=== PATIENT | female | born 1925 | race African-American/Black ===

== ENCOUNTER 2016-12-16 09:27 | Emergency (ER) | payer MEDICARE, BC ==
[2016-12-16] MEDS ORDERED: ACETAMINOPHEN IV (For NPO) 1,000 MG in SALINE 1 100ML.BAG IVPB STA (10:07)
--- NOTE | 2016-12-16 10:10 | ED ---
Neck Injury/Pain HPI - General Chief Complaint: Neck Pain/Injury Stated Complaint: Neck pain/chest discomfort/cough Time Seen by Provider: 12/16/16 09:45 Source: patient, RN notes reviewed Mode of arrival: wheelchair Limitations: no limitations - History of Present Illness Initial Comments: This is a 89-year-old female who presents with complaints of progressively worsening left-sided neck pain radiating into her left shoulder the past 2 days. She denies any trauma a recent falls fevers chills sweats shortness of breath or cough. She states which he turns to the left he gets worse. She denies any focal motor deficits. No other complaints at this time. She denies any chest pain. MD Complaint: neck pain - Related Data Home Medications Medication Instructions Recorded Confirmed Acarbose [Precose] 100 mg PO TID 11/16/14 12/16/16 Levothyroxine Sodium [Synthroid] 150 mcg PO DAILY 11/16/14 12/16/16 Aspirin [Adult Low Dose Aspirin EC] 81 mg PO DAILY 09/15/16 12/16/16 Allopurinol [Zyloprim] 100 mg PO DAILY 12/16/16 12/16/16 Benazepril [Lotensin] 10 mg PO DAILY 12/16/16 12/16/16 HYDROcodone/APAP 5-325MG [[place] 5] 1 tab PO Q4H PRN 12/16/16 12/16/16 Oxybutynin ER [Ditropan Xl] 15 mg PO DAILY 12/16/16 12/16/16 Previous Rx's Medication Instructions Recorded predniSONE 20 mg PO BID #10 tab 12/16/16 Allergies Allergy/AdvReac Type Severity Reaction Status Date / Time nickel Allergy Rash/Hives Verified 12/16/16 10:03 Review of Systems ROS Statement: Those systems with pertinent positive or pertinent negative responses have been documented in the HPI. ROS Other: All systems not noted in ROS Statement are negative. Past Medical History Past Medical History: Diabetes Mellitus, Hyperlipidemia, Hypertension, Myocardial Infarction ([place]), Thyroid Disorder Last Myocardial Infarction Date:: 11/30/1999 History of Any Multi-Drug Resistant Organisms: None Reported Past Surgical History: Appendectomy, Breast Surgery, Cholecystectomy, Hysterectomy, Joint Replacement, Orthopedic Surgery, Pacemaker, Tonsillectomy Additional Past Surgical History / Comment(s): PACER REMOVED, BILATERAL BREAST REDUCTIONS, LEFT HIP ARTHROPLASTY, Past Anesthesia/Blood Transfusion Reactions: No Reported Reaction Type of Cardiac Device: Unknown Device Placement Date:: 11/30/1999 Past Psychological History: No Psychological Hx Reported Smoking Status: Never smoker Past Alcohol Use History: None Reported Additional Past Alcohol Use History / Comment(s): NO ETOH USE. Past Drug Use History: None Reported - Past Family History Father Family Medical History: Vascular Disorder Mother Family Medical History: Diabetes Mellitus Sister(s) Additional Family Medical History / Comment(s): 3-4 SISTERS CANCER-BREAST General Exam - General Exam Comments Initial Comments: This is a well-developed well-nourished awake alert oriented 3 female Limitations: no limitations General appearance: alert, anxious Head exam: Present: atraumatic, normocephalic, normal inspection Eye exam: Present: normal appearance, PERRL, EOMI. Absent: scleral icterus, conjunctival injection, periorbital swelling ENT exam: Present: normal exam, mucous membranes moist Neck exam: Present: normal inspection, tenderness (Tenderness palpation over left lateral neck musculature no spinous process tenderness. Range of motion is restricted secondary to pain. No stridor JVD or bruits). Absent: meningismus, lymphadenopathy Respiratory exam: Present: normal lung sounds bilaterally. Absent: respiratory distress, wheezes, rales, rhonchi, stridor Cardiovascular Exam: Present: normal rhythm, bradycardia, normal heart sounds. Absent: systolic murmur, diastolic murmur, rubs, gallop, clicks GI/Abdominal exam: Present: soft, normal bowel sounds. Absent: distended, tenderness, guarding, rebound, rigid Extremities exam: Present: normal inspection, full ROM, normal capillary refill. Absent: tenderness, pedal edema, joint swelling, calf tenderness Back exam: Present: normal inspection Neurological exam: Present: alert, oriented X3, CN II-XII intact Psychiatric exam: Present: normal affect, normal mood Skin exam: Present: warm, dry, intact, normal color. Absent: rash Course Vital Signs 12/16/16 12/16/16 12/16/16 09:35 09:50 09:54 Temperature 97.3 F L Pulse Rate 54 L 48 L Respiratory 18 18 18 Rate Blood Pressure 204/72 160/70 O2 Sat by Pulse 97 99 Oximetry 12/16/16 11:46 Temperature 98 F Pulse Rate 55 L Respiratory 16 Rate Blood Pressure 128/75 O2 Sat by Pulse 98 Oximetry Medical Decision Making - Medical Decision Making Patient is feeling improved she'll be discharged the presentation is consistent with cervical radiculopathy and myofascial pain. - Lab Data Result diagrams: 12/16/16 10:15 12/16/16 10:15 Lab Results 12/16/16 12/16/16 12/16/16 Range/Units 10:15 10:15 10:15 WBC 5.2 (3.8-10.6) k/uL RBC 3.33 L (3.80-5.40) m/uL Hgb 10.1 L (11.4-16.0) gm/dL Hct 32.1 L (34.0-46.0) % MCV 96.4 (80.0-100.0) fL MCH 30.4 (25.0-35.0) pg MCHC 31.5 (31.0-37.0) g/dL RDW 13.9 (11.5-15.5) % Plt Count 303 (150-450) k/uL Neutrophils % 48 % Lymphocytes % 31 % Monocytes % 10 % Eosinophils % 6 % Basophils % 1 % Neutrophils # 2.5 (1.3-7.7) k/uL Lymphocytes # 1.6 (1.0-4.8) k/uL Monocytes # 0.5 (0-1.0) k/uL Eosinophils # 0.3 (0-0.7) k/uL Basophils # 0.0 (0-0.2) k/uL Sodium 143 (137-145) mmol/L Potassium 4.9 (3.5-5.1) mmol/L Chloride 112 H (98-107) mmol/L Carbon Dioxide 22 (22-30) mmol/L Anion Gap 9 mmol/L BUN 26 H (7-17) mg/dL Creatinine 1.04 (0.52-1.04) mg/dL Est GFR (MDRD) Af Amer >60 (>60 ml/min/1.73 sqM) Est GFR (MDRD) Non-Af 50 (>60 ml/min/1.73 sqM) Glucose 86 (74-99) mg/dL Calcium 9.0 (8.4-10.2) mg/dL Magnesium 1.6 (1.6-2.3) mg/dL Total Bilirubin 0.5 (0.2-1.3) mg/dL AST 18 (14-36) U/L ALT 30 (9-52) U/L Alkaline Phosphatase 70 (38-126) U/L Total Creatine Kinase 66 (30-135) U/L CK-MB (CK-2) 0.9 (0.0-2.4) ng/mL CK-MB (CK-2) Rel Index 1.4 Troponin I <0.012 (0.000-0.034) ng/mL Total Protein 6.1 L (6.3-8.2) g/dL Albumin 3.1 L (3.5-5.0) g/dL - EKG Data -: EKG Interpreted by Me EKG shows normal: sinus rhythm (Sinus bradycardia rate of 46. Interval 114 QRS duration 80 QT/QTC of 402/351) - Radiology Data Radiology results: report reviewed (I did review the imaging and reports no acute findings or is evidence of degenerative changes seen in the cervical spine.), image reviewed Disposition Clinical Impression: Strain of neck muscle, Cervical radiculopathy Disposition: HOME SELF-CARE Condition: Good Instructions: Cervical Strain (ED), Cervical Radiculopathy (ED), Acute Neck Pain (ED) Prescriptions: predniSONE 20 mg PO BID #10 tab
[2016-12-16 10:24] LABS: Basophils % (A) 1 %; CH 30.4; CHCM 31.7; Eosinophils # (A) 0.3 k/uL (0-0.7); Eosinophils % (A) 6 %; HCT 32.1 % (34.0-46.0); HDW 2.48; HGB 10.1 gm/dL (11.4-16.0); Luc # (Auto) 0.21; Luc % (Auto) 4; Lymphocytes # (A) 1.6 k/uL (1.0-4.8); Lymphocytes % (A) 31 %; MCH 30.4 pg (25.0-35.0); MCHC 31.5 g/dL (31.0-37.0); MCV 96.4 fL (80.0-100.0); Mean Platelet Volume 7.1; Monocytes # (A) 0.5 k/uL (0-1.0); Monocytes % (A) 10 %; Neutrophils # (A) 2.5 k/uL (1.3-7.7); Neutrophils % (A) 48 %; RBC 3.33 m/uL (3.80-5.40); RDW 13.9 % (11.5-15.5); WBC 5.2 k/uL (3.8-10.6); WBC (Perox) 5.18
[2016-12-16 10:33] LABS: ALT 30 U/L (9-52); AST 18 U/L (14-36); Alkaline Phosphatase 70 U/L (38-126); Anion Gap 9 mmol/L; Blood Urea Nitrogen 26 mg/dL (7-17); Carbon Dioxide 22 mmol/L (22-30); Chloride 112 mmol/L (98-107); Glucose 86 mg/dL (74-99); Magnesium 1.6 mg/dL (1.6-2.3); Non-African American GFR(MDRD) 50 (>60 ml/min/1.73 sqM); Potassium 4.9 mmol/L (3.5-5.1); Sodium 143 mmol/L (137-145); Total Bilirubin 0.5 mg/dL (0.2-1.3); Total Protein 6.1 g/dL (6.3-8.2)
[2016-12-16 10:43] LABS: Creatine Kinase 66 U/L (30-135)
[2016-12-16 10:56] LABS: Creatine Kinase MB 0.9 ng/mL (0.0-2.4); Troponin I <0.012 ng/mL (0.000-0.034)
--- NOTE | 2016-12-16 11:03 | XR ---
EXAMINATION TYPE: XR chest 2V DATE OF EXAM: 12/16/2016 10:49 AM COMPARISON: Chest x-ray 04 December 2014 HISTORY: Chest pain TECHNIQUE: Frontal and lateral views of the chest are obtained. FINDINGS: There is no focal air space opacity, pleural effusion, or pneumothorax seen. The cardiac silhouette size is within normal limits. Patient is rotated. There are overlying cardiac leads. Stran d-like densities at the left lung base may reflect atelectasis or scar. The aorta is dense. Degenerat eli changes are present in the visualized spine. Surgical clip in the upper abdomen. The osseous stru ctures are intact. IMPRESSION: Minimal basilar atelectasis suspected. Additional findings above.
--- NOTE | 2016-12-16 11:22 | XR ---
Cervical spine HISTORY: Neck pain No comparisons 5 views of the cervical spine Cervical vertebral bodies show preserved height. Anterolisthesis grade 1 C2-3, C4-5, C6-7. Retrolisth esis grade 1 C5-6. There is loss of disc height greatest at C2-3, C3-4, C5-6 and C6-7. Oblique images show mild foraminal encroachment at C4-5, C5-6, C6-7 bilaterally. There is multilevel facet arthropa thy. Prevertebral soft tissues show some indeterminate calcification. Airway is patent. Multilevel sp ondylosis is present. Bone mineralization slightly reduced. The patient is edentulous. IMPRESSION: Suspect degenerative disc disease, cervical MRI may be of benefit.
[2016-12-16 11:46] VITALS: BP 128/75; PULSE 55; RESP 16; TEMP 98
[2016-12-16] MEDS ORDERED: methylPREDNISolone SOD SUCCI 125 MG/2 ML VIAL IV STA (11:47)
== END 2016-12-16 12:04 | disposition home or self-care (01) ==
LOC: EC 09:27
DX: S16.1XXA Strain of muscle, fascia and tendon at neck level, initial encounter (principal); M54.12 Radiculopathy, cervical region; X58.XXXA Exposure to other specified factors, initial encounter; Z79.899 Other long term (current) drug therapy; Z79.82 Long term (current) use of aspirin; E07.9 Disorder of thyroid, unspecified; I10 Essential (primary) hypertension; Z91.048 Other nonmedicinal substance allergy status; I25.2 Old myocardial infarction; E11.9 Type 2 diabetes mellitus without complications; Z79.84 Long term (current) use of oral hypoglycemic drugs
CPT/HCPCS: 36415; 93005; 80053; 82550; 82553; 83735; 84484; 85025; 71020; 72050; 96374; 96375; 99284; J2930; J0131

== ENCOUNTER 2016-12-29 02:22 | Observation (INO) | payer MEDICARE, BC ==
--- NOTE | 2016-12-29 02:51 | ED ---
Chest Pain HPI - General Chief Complaint: Chest Pain Stated Complaint: chest pains Time Seen by Provider: 12/29/16 02:27 Source: patient, RN notes reviewed, old records reviewed Mode of arrival: wheelchair Limitations: no limitations - History of Present Illness Initial Comments: This is a 89-year-old female who presents with complaints of the onset about one hour ago of left-sided chest pain was sharp in nature moderate in severity she did take 2 nitroglycerin which is seen helped currently she states she is pain-free no fevers chills nausea vomiting sweats cough or other symptoms. No trauma is reported. Of note she was here in the of this month with complaints of left-sided neck pain which was thought to be radicular in nature. Per her family she did have chest pain several days ago and chose not to get evaluated. She has no other complaints this time she currently again states she is pain-free MD Complaint: chest pain - Related Data Home Medications Medication Instructions Recorded Confirmed Acarbose [Precose] 100 mg PO TID 11/16/14 12/16/16 Levothyroxine Sodium [Synthroid] 150 mcg PO DAILY 11/16/14 12/16/16 Aspirin [Adult Low Dose Aspirin EC] 81 mg PO DAILY 09/15/16 12/16/16 Allopurinol [Zyloprim] 100 mg PO DAILY 12/16/16 12/16/16 Benazepril [Lotensin] 10 mg PO DAILY 12/16/16 12/16/16 HYDROcodone/APAP 5-325MG [[place] 5] 1 tab PO Q4H PRN 12/16/16 12/16/16 Oxybutynin ER [Ditropan Xl] 15 mg PO DAILY 12/16/16 12/16/16 Previous Rx's Medication Instructions Recorded predniSONE 20 mg PO BID #10 tab 12/16/16 Allergies Allergy/AdvReac Type Severity Reaction Status Date / Time nickel Allergy Rash/Hives Verified 12/16/16 10:03 Review of Systems ROS Statement: Those systems with pertinent positive or pertinent negative responses have been documented in the HPI. ROS Other: All systems not noted in ROS Statement are negative. EKG Findings - EKG Results: EKG: interpreted by MARGUERITE, sinus rhythm (Sinus rhythm with a rate of 53 CA interval 114 QRS duration 74 daily since QTC of 394/[address]- T wave changes this is compared to an EKG dated 12/16/16 which shows no change.) Past Medical History Past Medical History: Diabetes Mellitus, Hyperlipidemia, Hypertension, Myocardial Infarction ([place]), Thyroid Disorder Last Myocardial Infarction Date:: 11/30/1999 History of Any Multi-Drug Resistant Organisms: None Reported Past Surgical History: Appendectomy, Breast Surgery, Cholecystectomy, Hysterectomy, Joint Replacement, Orthopedic Surgery, Pacemaker, Tonsillectomy Additional Past Surgical History / Comment(s): PACER REMOVED, BILATERAL BREAST REDUCTIONS, LEFT HIP ARTHROPLASTY, Past Anesthesia/Blood Transfusion Reactions: No Reported Reaction Type of Cardiac Device: Unknown Device Placement Date:: 11/30/1999 Past Psychological History: No Psychological Hx Reported Smoking Status: Never smoker Past Alcohol Use History: None Reported Additional Past Alcohol Use History / Comment(s): NO ETOH USE. Past Drug Use History: None Reported - Past Family History Father Family Medical History: Vascular Disorder Mother Family Medical History: Diabetes Mellitus Sister(s) Additional Family Medical History / Comment(s): 3-4 SISTERS CANCER-BREAST General Exam - General Exam Comments Initial Comments: This is a well-developed well-nourished awake alert oriented 3 female Limitations: no limitations General appearance: alert, in no apparent distress Head exam: Present: atraumatic, normocephalic, normal inspection Eye exam: Present: normal appearance, PERRL, EOMI. Absent: scleral icterus, conjunctival injection, periorbital swelling ENT exam: Present: normal exam, mucous membranes moist Neck exam: Present: normal inspection. Absent: tenderness, meningismus, lymphadenopathy Respiratory exam: Present: normal lung sounds bilaterally, chest wall tenderness (Tenderness palpation over left sternal costal margin this does seem to reproduce the patient's pain.). Absent: respiratory distress, wheezes, rales , rhonchi, stridor Cardiovascular Exam: Present: regular rate, normal rhythm, normal heart sounds. Absent: systolic murmur, diastolic murmur, rubs, gallop, clicks GI/Abdominal exam: Present: soft, normal bowel sounds. Absent: distended, tenderness, guarding, rebound, rigid Extremities exam: Present: normal inspection, full ROM, normal capillary refill. Absent: tenderness, pedal edema, joint swelling, calf tenderness Back exam: Present: normal inspection Neurological exam: Present: alert, oriented X3, CN II-XII intact Psychiatric exam: Present: normal affect, normal mood Skin exam: Present: warm, dry, intact, normal color. Absent: rash Course Vital Signs 12/29/16 12/29/16 12/29/16 02:36 02:39 04:27 Temperature 97.8 F Pulse Rate 56 L 52 L 51 L Respiratory 18 16 18 Rate Blood Pressure 216/90 172/72 138/63 O2 Sat by Pulse 99 99 Oximetry Chest Pain MDM - MDM Review the imaging shows no acute findings. Patient has had intermittent chest pain she'll be admitted for evaluation inpatient with Dr. French on consult Disposition Clinical Impression: Atypical chest pain, Unstable angina pectoris Disposition: ADMITTED IP TO THIS HOSP Condition: Stable
[2016-12-29 03:09] LABS: Basophils % (A) 1 %; CH 30.5; CHCM 31.8; Eosinophils # (A) 0.2 k/uL (0-0.7); Eosinophils % (A) 3 %; HDW 2.41; HGB 10.7 gm/dL (11.4-16.0); Luc # (Auto) 0.24; Luc % (Auto) 3; Lymphocytes # (A) 2.3 k/uL (1.0-4.8); Lymphocytes % (A) 30 %; MCH 30.3 pg (25.0-35.0); MCHC 31.5 g/dL (31.0-37.0); MCV 96.2 fL (80.0-100.0); Mean Platelet Volume 7.4; Monocytes # (A) 0.5 k/uL (0-1.0); Monocytes % (A) 7 %; Neutrophils # (A) 4.4 k/uL (1.3-7.7); Neutrophils % (A) 57 %; RBC 3.54 m/uL (3.80-5.40); RDW 14.4 % (11.5-15.5); WBC 7.8 k/uL (3.8-10.6); WBC (Perox) 7.96
--- NOTE | 2016-12-29 03:11 | XR ---
EXAMINATION TYPE: XR chest 2V DATE OF EXAM: 12/29/2016 3:04 AM COMPARISON: 12/16/2016 HISTORY: Chest pain TECHNIQUE: Frontal and lateral views of the chest are obtained. FINDINGS: There is no heart failure or confluent pneumonic infiltrate. There are chest leads. Costop hrenic angles are clear. There is spurring in the thoracic spine. Thoracic aorta is atheromatous. IMPRESSION: No active cardiopulmonary disease. No change.
[2016-12-29 03:16] LABS: Magnesium 1.5 mg/dL (1.6-2.3); Potassium 4.7 mmol/L (3.5-5.1); Total Bilirubin 0.4 mg/dL (0.2-1.3); Total Protein 5.9 g/dL (6.3-8.2)
[2016-12-29 03:26] LABS: Partial Thromboplastin Time 22.7 sec (22.0-30.0); Prothrombin Time 10.5 sec (9.0-12.0)
[2016-12-29 03:27] LABS: Creatine Kinase 43 U/L (30-135)
[2016-12-29 03:39] LABS: Creatine Kinase MB 1.2 ng/mL (0.0-2.4); Troponin I <0.012 ng/mL (0.000-0.034)
[2016-12-29] MEDS ORDERED: RX INFO: IV CONTRAST WAS GIVEN 1 EACH MISC MISCELLANE PRN (03:41)
[2016-12-29] MEDS ORDERED: SODIUM CHLORIDE 0.9% 500 ML IV STA (03:41)
--- NOTE | 2016-12-29 04:40 | CT ---
EXAMINATION TYPE: CT angio chest DATE OF EXAM: 12/29/2016 4:01 AM COMPARISON: NONE HISTORY: chest pain CT DLP: 247.80 mGycm Automated exposure control for dose reduction was used. CONTRAST: CTA scan of the thorax is performed with IV Contrast, patient injected with 60 given and 40 wasted mL of Visipaque 320, pulmonary embolism protocol. . FINDINGS: The lungs are clear of consolidation. There is no evidence of a pulmonary mass. There is normal contr ast opacification of the pulmonary arteries. I see no filling defect. There is no pericardial effusio n. There is no pleural effusion. There are no hilar masses. There is no evidence of aortic aneurysm o r dissection. IMPRESSION: NEGATIVE CT ANGIOGRAM OF THE CHEST. NO EVIDENCE OF PULMONARY EMBOLISM.
[2016-12-29] MEDS ORDERED: NITROGLYCERIN SL TABS 0.4 MG TAB SUBLINGUAL PRN (05:03)
[2016-12-29] MEDS ORDERED: HYDROcodone/APAP 5-325MG 1 EACH TAB PO PRN (05:05)
[2016-12-29 06:21] LABS: Creatine Kinase 39 U/L (30-135)
[2016-12-29 06:34] LABS: Creatine Kinase MB 0.9 ng/mL (0.0-2.4); Troponin I <0.012 ng/mL (0.000-0.034)
[2016-12-29 06:42] VITALS: RESP 16
[2016-12-29 06:45] LABS: Glucose,Whole Blood 82 mg/dL (75-99)
[2016-12-29] MEDS: LEVOTHYROXINE 75 MCG TAB PO SCH (06:55)
[2016-12-29] MEDS ORDERED: NON-FORMULARY DRUG (Aspirin [Adult Low Dose Aspirin Ec] 81 MG) PO SCH (09:00)
--- NOTE | 2016-12-29 09:26 | P.CRDCN ---
History of Present Illness Consult reason: chest pain History of present illness: 89-year-old female presenting to the emergency room with atypical anterior chest discomfort, nonradiating. D-dimer elevated. CT angiogram did not show any evidence for pulmonary embolus him. 2 cardiac enzymes are normal ECG did not show any ST segment abnormalities suggestive of ischemia or myocardial injury She was given nitroglycerin with partial relief At the time my examination she has chest wall tenderness She denies worsening of the pain with taking a deep breath No dizziness or loss of consciousness Past history of coronary artery disease non-ST segment elevation HI long atherosclerotic plaque in the mid right coronary artery 70% stenosis in the very distal LAD medical treatment advised in 2009 and she has done well since then Diabetes She states she takes a statin but I don't see Dr. franco Hypertension Review of systems: No fever chills or rigors, no cough, phlegm or expectoration , no nausea, vomiting or diarrhea, no hematuria, dysuria, no musculoskeletal complaints, no strokes or seizures, no skin lesions. On examination Pulse rate in the 50s, afebrile 98.2, blood pressure 138/63 105/53 and 172/78 mmHg No JVD thyromegaly, or bruits Significant chest wall tenderness Normal heart sounds normal S1 normal S2 no murmurs Normal breath sounds no rhonchi no crackles Abdomen soft nontender Extremities warm no edema Impression Atypical chest discomfort in this 89-year-old female who has known coronary artery disease. Cardiac catheterization data was reviewed and shows a long area of stenosis in the RCA and 70% distal LAD lesion and the decision was to treat him medically given the characteristics of the lesions and the location and anatomy Diabetes Hypertension Mild sinus bradycardia No evidence for acute myocardial infarction Suggest Avoid beta blockers. Atorvastatin 40 mg by mouth daily Hypertension management From a cardiac standpoint when she goes home she should see Dr. Galvan within this week medical treatment for now Past Medical History Past Medical History: Chest Pain / Angina, Diabetes Mellitus, Hyperlipidemia, Hypertension, Myocardial Infarction ([place]), Thyroid Disorder Last Myocardial Infarction Date:: 11/30/1999 History of Any Multi-Drug Resistant Organisms: None Reported Past Surgical History: Appendectomy, Breast Surgery, Cholecystectomy, Hysterectomy, Joint Replacement, Orthopedic Surgery, Pacemaker, Tonsillectomy Additional Past Surgical History / Comment(s): PACER REMOVED, BILATERAL BREAST REDUCTIONS, LEFT HIP ARTHROPLASTY, Past Anesthesia/Blood Transfusion Reactions: No Reported Reaction Type of Cardiac Device: Unknown Device Placement Date:: 11/30/1999 Past Psychological History: No Psychological Hx Reported Smoking Status: Never smoker Past Alcohol Use History: None Reported Additional Past Alcohol Use History / Comment(s): NO ETOH USE. Past Drug Use History: None Reported - Past Family History Father Family Medical History: Vascular Disorder Mother Family Medical History: Diabetes Mellitus Sister(s) Additional Family Medical History / Comment(s): 3-4 SISTERS CANCER-BREAST Medications and Allergies Home Medications Medication Instructions Recorded Confirmed Type Acarbose [Precose] 100 mg PO TID 11/16/14 12/29/16 History Levothyroxine Sodium [Synthroid] 150 mcg PO DAILY 11/16/14 12/29/16 History Aspirin [Adult Low Dose Aspirin EC] 81 mg PO DAILY 09/15/16 12/29/16 History Allopurinol [Zyloprim] 100 mg PO DAILY 12/16/16 12/29/16 History Benazepril [Lotensin] 10 mg PO DAILY 12/16/16 12/29/16 History HYDROcodone/APAP 5-325MG [[place] 5] 1 tab PO Q4H PRN 12/16/16 12/29/16 History Oxybutynin ER [Ditropan Xl] 15 mg PO DAILY 12/16/16 12/29/16 History Gentamicin 0.1% Cream 1 applic TOPICAL BID 12/29/16 12/29/16 History Allergies Allergy/AdvReac Type Severity Reaction Status Date / Time nickel Allergy Rash/Hives Verified 12/29/16 07:13 Physical Exam Vitals: Vital Signs Temp Pulse Pulse Resp BP BP Pulse Ox 12/29/16 07:44 99.5 F 90 16 105/53 97 12/29/16 06:43 54 L 16 12/29/16 06:41 98.2 F 54 L 16 172/78 100 12/29/16 06:00 50 L 18 155/70 98 Intake and Output 12/28/16 12/29/16 12/29/16 22:59 06:59 14:59 Other: Voiding Method Toilet Results 12/29/16 02:50 12/29/16 02:50 Cardiac Enzymes 12/29/16 Range/Units 05:20 CK-MB (CK-2) 0.9 (0.0-2.4) ng/mL Troponin I <0.012 (0.000-0.034) ng/mL Current Medications Generic Name Dose Route Start Last Admin Trade Name Freq PRN Reason Stop Dose Admin Acarbose 100 mg 12/29/16 07:30 Precose PO TID-W/MEALS REPLACED BY [facility] Acetaminophen/Hydrocodone Bitart 1 each 12/29/16 05:05 [place] 5-325 PO Q4H PRN Pain Allopurinol 100 mg 12/29/16 09:00 Zyloprim PO DAILY REPLACED BY [facility] Aspirin 325 mg 12/30/16 09:00 Aspirin PO DAILY REPLACED BY [facility] Atorvastatin Calcium 40 mg 12/29/16 09:30 Lipitor PO DAILY REPLACED BY [facility] Sodium Chloride 1,000 mls @ 20 mls/hr 12/29/16 05:15 Saline 0.9% IV .Q24H REPLACED BY [facility] Insulin Human Lispro 0 unit 12/29/16 07:30 Humalog SQ ACHS REPLACED BY [facility] Protocol Levothyroxine Sodium 150 mcg 12/29/16 06:30 12/29/16 06:55 Synthroid PO 150 mcg 0630 REPLACED BY [facility] Administration Lisinopril 10 mg 12/29/16 09:00 Zestril PO DAILY REPLACED BY [facility] Miscellaneous Information 1 each 12/29/16 03:41 Rx Info: Iv Contrast Was Given MISCELLANE 12/31/16 03:41 DAILY PRN Per Protocol Nitroglycerin 0.4 mg 12/29/16 05:03 Nitrostat SUBLINGUAL Q5M PRN Chest Pain Oxybutynin Chloride 15 mg 12/29/16 09:00 Ditropan Xl PO DAILY REPLACED BY [facility] Prednisone 20 mg 12/29/16 09:00 PO BID REPLACED BY [facility] Intake and Output 12/28/16 12/29/16 12/29/16 22:59 06:59 14:59 Other: Voiding Method Toilet
--- NOTE | 2016-12-29 10:19 | ECHOF ---
Referral Reason:Chest pain MEASUREMENTS -------- HEIGHT: 152.4 cm WEIGHT: 72.6 kg BP: 172/78 RVIDd: 3.2 cm (< 3.3) IVSd: 1.1 cm (0.6 - 1.1) LVIDd: 3.8 cm (3.9 - 5.3) LVPWd: 1.1 cm (0.6 - 1.1) IVSs: 1.7 cm LVIDs: 2.7 cm LVPWs: 1.5 cm LA Diam: 3.5 cm (2.7 - 3.8) LAESV Index (A-L): 32.53 ml/m Ao Diam: 2.7 cm (2.0 - 3.7) AV Cusp: 1.8 cm (1.5 - 2.6) LA Diam: 4.0 cm (2.7 - 3.8) MV EXCURSION: 14.577 mm (> 18.000) MV EF SLOPE: 89 mm/s (70 - 150) EPSS: 0.5 cm MV E Long: 1.05 m/s MV DecT: 200 ms MV A Long: 0.86 m/s MV E/A Ratio: 1.22 AR PHT: 1442 ms RAP: 15.00 mmHg RVSP: 48.20 mmHg FINDINGS -------- Resting bradycardia (HR<60bpm). This was a technically good study. There is borderline concentric left ventricular hypertrophy. Overall left ventricular systolic function is normal with, an EF between 55 - 60 %. The right ventricle is mildly enlarged. LA is midly dilated 29-33ml/m2. The right atrium is normal in size. Aortic valve is trileaflet and is mildly thickened. There is [id number] aortic regurgitation. The mitral valve leaflets are mildly thickened. Mild mitral annular calcification present. Mild mitral regurgitation is present. Mild tricuspid regurgitation present. There is moderate pulmonary hypertension. The right ventricular systolic pressure, as measured by Doppler, is 48.20mmHg. Trace/mild (physiologic) pulmonic regurgitation. The aortic root size is normal. The inferior vena cava is dilated with poor inspiratory collapse which is consistent with estimated right atrial pressure of 15 mmHg. Echo free space may represent effusion or a pericardial fat pad. CONCLUSIONS -------- 1. Resting bradycardia (HR<60bpm). 2. The mitral valve leaflets are mildly thickened. 3. Mild mitral annular calcification present. 4. Mild mitral regurgitation is present. 5. Mild tricuspid regurgitation present. 6. There is moderate pulmonary hypertension. 7. The right ventricular systolic pressure, as measured by Doppler, is 48.20mmHg. 8. Trace/mild (physiologic) pulmonic regurgitation. 9. The aortic root size is normal. 10. The inferior vena cava is dilated with poor inspiratory collapse which is consistent with estimated right atrial pressure of 15 mmHg. 11. Echo free space may represent effusion or a pericardial fat pad. 12. This was a technically good study. 13. There is borderline concentric left ventricular hypertrophy. 14. Overall left ventricular systolic function is normal with, an EF between 55 - 60 %. 15. The right ventricle is mildly enlarged. 16. LA is midly dilated 29-33ml/m2. 17. The right atrium is normal in size. 18. Aortic valve is trileaflet and is mildly thickened. 19. There is [id number] aortic regurgitation. LINE CON[employer]CTION SUPERVISOR: Yo Oliveira RDCS
[2016-12-29] MEDS: INSULIN LISPRO (humaLOG) 300 UNIT/3 ML VIAL SQ SCH ×4 (11:18→21:20)
[2016-12-29 11:37] LABS: Hemoglobin A1C 6.1 % (4.2-6.1)
[2016-12-29 12:03] LABS: Glucose,Whole Blood 154 mg/dL (75-99)
[2016-12-29] MEDS: OXYBUTYNIN 15 MG TAB.ER.24 PO SCH (13:01)
[2016-12-29] MEDS: ATORVASTATIN 40 MG TAB PO SCH (13:01)
[2016-12-29] MEDS: LISINOPRIL 10 MG TAB PO SCH (13:01)
[2016-12-29] MEDS: ALLOPURINOL 100 MG TAB PO SCH (13:01)
[2016-12-29] MEDS: predniSONE 20 MG TAB PO SCH ×3 (13:01→20:09)
--- NOTE | 2016-12-29 15:31 | P.HPIM ---
History of Present Illness H&P Date: 12/29/16 Chief Complaint: Chest pain 89-year-old female presented on the day of admission to the emergency room with a chief complaint of developing left anterior chest wall discomfort. The d- dimer was elevated and patient did undergo CAT scan of the chest showed no evidence of a pulmonary emboli patient does have a history of coronary artery disease. Had a heart catheterization which did show disease in the right coronary artery 70% in the very distal LAD. Heart catheterization was done in 2009. Patient has been treated medically since then. Has done well. Subsequent the patient was admitted to the services of the attending a cardiology consultation has been requested Review of Systems Essentially unremarkable except as mentioned in the present illness Past Medical History Past Medical History: Chest Pain / Angina, Diabetes Mellitus, Hyperlipidemia, Hypertension, Myocardial Infarction (MS), Thyroid Disorder Last Myocardial Infarction Date:: 11/30/1999 History of Any Multi-Drug Resistant Organisms: None Reported Past Surgical History: Appendectomy, Breast Surgery, Cholecystectomy, Hysterectomy, Joint Replacement, Orthopedic Surgery, Pacemaker, Tonsillectomy Additional Past Surgical History / Comment(s): PACER REMOVED, BILATERAL BREAST REDUCTIONS, LEFT HIP ARTHROPLASTY, Past Anesthesia/Blood Transfusion Reactions: No Reported Reaction Type of Cardiac Device: Unknown Device Placement Date:: 11/30/1999 Past Psychological History: No Psychological Hx Reported Smoking Status: Never smoker Past Alcohol Use History: None Reported Additional Past Alcohol Use History / Comment(s): NO ETOH USE. Past Drug Use History: None Reported - Past Family History Father Family Medical History: Vascular Disorder Mother Family Medical History: Diabetes Mellitus Sister(s) Additional Family Medical History / Comment(s): 3-4 SISTERS CANCER-BREAST Medications and Allergies Home Medications Medication Instructions Recorded Confirmed Type Acarbose [Precose] 100 mg PO TID 11/16/14 12/29/16 History Levothyroxine Sodium [Synthroid] 150 mcg PO DAILY 11/16/14 12/29/16 History Aspirin [Adult Low Dose Aspirin EC] 81 mg PO DAILY 09/15/16 12/29/16 History Allopurinol [Zyloprim] 100 mg PO DAILY 12/16/16 12/29/16 History Benazepril [Lotensin] 10 mg PO DAILY 12/16/16 12/29/16 History HYDROcodone/APAP 5-325MG [[place] 5] 1 tab PO Q4H PRN 12/16/16 12/29/16 History Oxybutynin ER [Ditropan Xl] 15 mg PO DAILY 12/16/16 12/29/16 History Gentamicin 0.1% Cream 1 applic TOPICAL BID 12/29/16 12/29/16 History Allergies Allergy/AdvReac Type Severity Reaction Status Date / Time nickel Allergy Rash/Hives Verified 12/29/16 07:13 Physical Exam Vitals: Vital Signs Temp Pulse Pulse Resp BP BP Pulse Ox 12/29/16 11:48 97.7 F 57 L 16 134/86 95 12/29/16 07:44 99.5 F 90 16 105/53 97 12/29/16 06:43 54 L 16 12/29/16 06:41 98.2 F 54 L 16 172/78 100 12/29/16 06:00 50 L 18 155/70 98 Intake and Output 12/29/16 12/29/16 12/29/16 06:59 14:59 22:59 Intake Total 300 Balance 300 Intake: Oral 300 Other: Voiding Method Toilet Toilet GENERAL APPEARANCE: 89-year-old patient is alert, oriented, in no acute distress. VITAL SIGNS: Reviewed HEENT: Head is normocephalic and atraumatic. Pupils are equal and reactive. The nares are patent. Oropharynx is clear without lesions. NECK: Supple without lymphadenopathy. Traches midline. HEART: S1, S2. Regular rate and rhythm. Currently denying chest pain no murmur LUNGS: No crackles or wheezes are heard. On room air sats greater than 90% ABDOMEN: Soft, nontender, nondistended with good bowel sounds. No peritoneal signs. No palpable organomegaly or masses. EXTREMITIES: Normal skin color and turgor. No cyanosis, rash, ulceration, clubbing or edema. Radial pedal pulses are 2/4 bilaterally. NEUROLOGICAL: No focal deficits. Strength and sensation are grossly intact. Results CBC & Chem 7: 12/29/16 02:50 12/29/16 02:50 Labs: Abnormal Lab Results - Last 24 Hours (Table) 12/29/16 Range/Units 12:00 POC Glucose (mg/dL) 154 H (75-99) mg/dL Thrombosis Risk Factor Assmnt - Choose All That Apply Any of the Below Risk Factors Present?: Yes Each Factor Represents 1 point: Obesity (BMI >25) Other Risk Factors: Yes Each Risk Factor Represents 3 Points: Age 75 years or older Thrombosis Risk Factor Assessment Total Risk Factor Score: 4 Thrombosis Risk Factor Assessment Level: Moderate Risk Assessment and Plan Plan: Impression Present on admission atypical chest pain with no evidence of coronary occlusive disease cardiac enzymes 3 sets negative Known coronary artery disease heart catheterization in 2009 showed stenosis in the RCA with 70% distal LAD treated medically Hypertension Sinus bradycardic asymptomatic heart rate in the 40s and 50s Dyslipidemia Plan Avoid beta blockers Lipitor 40 by mouth daily Monitor blood pressure and heart rate adjust antihypertensive meds as indicated Patient be seen by cardiology service Resume home meds as appropriate DVT and GI prophylaxis The above dictated assessment and findings were discussed with dr mancilla Impression and the plan of care have been dictated as directed. Cherelle Oakley nurse practitioner acting as a scribe for dr mancilla
[2016-12-29 15:42] LABS: Creatine Kinase 53 U/L (30-135)
[2016-12-29] MEDS: ACARBOSE 25 MG TAB PO SCH ×2 (15:47→17:45)
[2016-12-29 15:53] LABS: Troponin I <0.012 ng/mL (0.000-0.034)
[2016-12-29] MEDS: MAGNESIUM SULFATE-D5W PMX 1 GM in DEXTROSE/WATER 1 100ML.BAG IVPB SCH ×3 (16:20→19:43)
[2016-12-29] MEDS: MAGNESIUM OXIDE 400 MG TAB PO SCH ×2 (16:21→19:43)
[2016-12-29 17:05] LABS: Glucose,Whole Blood 118 mg/dL (75-99)
[2016-12-29 20:53] LABS: Glucose,Whole Blood 155 mg/dL (75-99)
[2016-12-29] MEDS: SODIUM CHLORIDE 0.9% 1,000 ML IV SCH (22:36)
[2016-12-30] MEDS: LEVOTHYROXINE 75 MCG TAB PO SCH (05:39)
[2016-12-30] MEDS: SODIUM CHLORIDE 0.9% 1,000 ML IV SCH (05:54)
[2016-12-30 07:13] LABS: Glucose,Whole Blood 143 mg/dL (75-99)
[2016-12-30 07:47] VITALS: BP 151/70; PULSE 48; TEMP 97.6
[2016-12-30 07:56] LABS: Magnesium 2.1 mg/dL (1.6-2.3)
[2016-12-30] MEDS ORDERED: ASPIRIN 325 MG TAB PO SCH (09:00)
[2016-12-30] MEDS: INSULIN LISPRO (humaLOG) 300 UNIT/3 ML VIAL SQ SCH (09:05)
[2016-12-30] MEDS: LISINOPRIL 10 MG TAB PO SCH (09:07)
[2016-12-30] MEDS: ACARBOSE 25 MG TAB PO SCH (09:07)
[2016-12-30] MEDS: ALLOPURINOL 100 MG TAB PO SCH (09:07)
[2016-12-30] MEDS: OXYBUTYNIN 15 MG TAB.ER.24 PO SCH (09:07)
[2016-12-30] MEDS: MAGNESIUM OXIDE 400 MG TAB PO SCH (09:07)
[2016-12-30] MEDS: predniSONE 20 MG TAB PO SCH (09:09)
[2016-12-30] MEDS: ATORVASTATIN 40 MG TAB PO SCH (09:10)
--- NOTE | 2016-12-30 09:17 | P.DS ---
Providers Date of admission: 12/29/16 05:03 Expected date of discharge: 12/30/16 Attending physician: Mario Alba Consults: dr llanos Primary care physician: Mario Alba Hospital Course: 89-year-old female presented on the day of admission to the emergency room with a chief complaint of developing left anterior chest wall discomfort. The d- dimer was elevated and patient did undergo CAT scan of the chest showed no evidence of a pulmonary emboli patient does have a history of coronary artery disease. Had a heart catheterization which did show disease in the right coronary artery 70% in the very distal LAD. Heart catheterization was done in 2009. Patient has been treated medically since then. Past history of coronary artery disease non-ST segment elevation MO long atherosclerotic plaque in the mid right coronary artery 70% stenosis in the very distal LAD medical treatment advised in 2009 and she has done well since then Cardiac enzymes 3 sets were negative. Patient remained pain-free. Patient was felt to be hemodynamically stable and appropriate proceed with a discharge to home. Cardiology recommended this patient not be started on a beta cedric telemetry unit was showing sinus bradycardia heart rate in the 50s patient was asymptomatic Impression Present on admission atypical chest pain with no evidence of coronary occlusive disease cardiac enzymes 3 sets negative Known coronary artery disease heart catheterization in 2009 showed stenosis in the RCA with 70% distal LAD treated medically Hypertension essential Sinus bradycardic asymptomatic heart rate in the 40s and 50s Dyslipidemia The above dictated assessment and findings were discussed with [].dr alba Impression and the plan of care have been dictated as directed. Cherelle Oakley nurse practitioner acting as a scribe for dr alba Patient Condition at Discharge: Stable Plan - Discharge Summary New Discharge Prescriptions: Atorvastatin [Lipitor] 40 mg PO DAILY #30 tab Magnesium Oxide [Mag-Ox] 400 mg PO BID #60 tab Discharge Medication List Acarbose [Precose] 100 mg PO TID 11/16/14 [History] Levothyroxine Sodium [Synthroid] 150 mcg PO DAILY 11/16/14 [History] Aspirin [Adult Low Dose Aspirin EC] 81 mg PO DAILY 09/15/16 [History] Allopurinol [Zyloprim] 100 mg PO DAILY 12/16/16 [History] Benazepril [Lotensin] 10 mg PO DAILY 12/16/16 [History] HYDROcodone/APAP 5-325MG [[place] 5-325] 1 tab PO Q4H PRN 12/16/16 [History] Oxybutynin ER [Ditropan Xl] 15 mg PO DAILY 12/16/16 [History] Gentamicin 0.1% Cream 1 applic TOPICAL BID 12/29/16 [History] Aspirin 325 mg PO DAILY tab 12/30/16 [Rx] Atorvastatin [Lipitor] 40 mg PO DAILY #30 tab 12/30/16 [Rx] Magnesium Oxide [Mag-Ox] 400 mg PO BID #60 tab 12/30/16 [Rx] Nitroglycerin Sl Tabs [Nitrostat] 0.4 mg SUBLINGUAL Q5M PRN #0 tab 12/30/16 [Rx] predniSONE 20 mg PO BID tab 12/30/16 [Rx] Follow up Appointment(s)/Referral(s): Mario Alba MD [Primary Care Provider] - 1-2 days Lavelle French MD [STAFF PHYSICIAN] - 12/31/16 2:00 pm () Discharge Disposition: HOME SELF-CARE
== END 2016-12-30 11:41 | disposition home or self-care (01) ==
LOC: EC 02:22 → 3OBS 05:03
PROVIDERS: ADMIT Family Medicine; ATTEND Family Medicine
DX: R07.89 Other chest pain (principal); R00.1 Bradycardia, unspecified; E78.5 Hyperlipidemia, unspecified; I10 Essential (primary) hypertension; E11.9 Type 2 diabetes mellitus without complications; E07.9 Disorder of thyroid, unspecified; E66.9 Obesity, unspecified; I25.10 Atherosclerotic heart disease of native coronary artery without angina pectoris; Z68.31 Body mass index [BMI] 31.0-31.9, adult; Z79.899 Other long term (current) drug therapy; Z91.048 Other nonmedicinal substance allergy status; Z79.82 Long term (current) use of aspirin; I25.2 Old myocardial infarction; R79.89 Other specified abnormal findings of blood chemistry; Z79.84 Long term (current) use of oral hypoglycemic drugs
CPT/HCPCS: 99285; 36415; 93005; 93306; 85379; 83880; 80061; 80053; 82150; 83036; 82550; 82553; 83690; 83735 ×2; 84484; 85025; 85610; 85730; 71020; 71275; 96361; G0378 ×2; Q9967; J3475; J7512 ×2; 96366

== ENCOUNTER → 2017-02-10 | Outpatient (CLI) | payer MEDICARE, BC ==
[2017-02-10 15:40] LABS: CH 30.6; CHCM 30.9; HCT 34.5 % (34.0-46.0); HDW 2.47; HGB 10.5 gm/dL (11.4-16.0); Hypochromasia Slight; MCH 30.3 pg (25.0-35.0); MCHC 30.3 g/dL (31.0-37.0); MCV 99.8 fL (80.0-100.0); Macrocytosis Slight; Mean Platelet Volume 8.2; RBC 3.46 m/uL (3.80-5.40); RDW 14.6 % (11.5-15.5); WBC 6.2 k/uL (3.8-10.6)
[2017-02-10 16:06] LABS: Anion Gap 10 mmol/L; Blood Urea Nitrogen 26 mg/dL (7-17); Carbon Dioxide 23 mmol/L (22-30); Chloride 109 mmol/L (98-107); Non-African American GFR(MDRD) 58 (>60 ml/min/1.73 sqM); Potassium 4.8 mmol/L (3.5-5.1); Sodium 142 mmol/L (137-145)
== END ==
LOC: LABPAT 15:17
PROVIDERS: ATTEND Internal Medicine Cardiovascular Disease
DX: I25.10 Atherosclerotic heart disease of native coronary artery without angina pectoris (principal)
CPT/HCPCS: 36415; 80051; 82565; 84520; 85027

== ENCOUNTER → 2017-02-18 | Day surgery (SDC) | payer MEDICARE, BC ==
[~2017-02-18] MED LIST: ALPRAZolam 0.25 MG TAB PO PRN; ALPRAZolam 0.5 MG TAB PO PRN; ASPIRIN 325 MG TAB PO STA; ATORVASTATIN 80 MG TAB PO STA; ENALAPRILAT 1.25 MG/ML 1 ML VIAL IVP ONE; ENALAPRILAT 1.25 MG/ML 1 ML VIAL ONE; IOHEXOL 350 MG/ML 100 ML BOTTLE INJ ONE; LIDOCAINE 2% INJ 20 MG/ML (20 ML MDV) ONE; LIDOCAINE 2% INJ 20 MG/ML SQ ONE; MIDAZOLAM 2 MG/2 ML VIAL IVP ONE; MIDAZOLAM 2 MG/2 ML VIAL ONE; NITROGLYCERIN OINT 1 INCH/GM PACKET TOPICAL ONE; NITROGLYCERIN SL TABS 0.4 MG TAB SUBLINGUAL PRN; RX INFO: IV CONTRAST WAS GIVEN 1 EACH MISC MISCELLANE PRN; SODIUM CHLORIDE 0.9% 1,000 ML IV SCH; SODIUM CHLORIDE 0.9% 1,000 ML in EMPTY BAG 1 BAG IV ONE; amLODIPine 10 MG TAB PO SCH; diphenhydrAMINE 50 MG/ML 1 ML VIAL IVP ONE; diphenhydrAMINE 50 MG/ML 1 ML VIAL ONE; fentaNYL (PF) 50 MCG/ML 2 ML AMP ONE
[2017-02-18 07:55] VITALS: RESP 18
[2017-02-18 08:08] LABS: Glucose,Whole Blood 73 mg/dL (75-99)
--- NOTE | 2017-02-18 10:04 | CC ---
INDICATION: Chest pain with abnormal stress test. PROCEDURE NOTE: After obtaining informed consent, left heart catheterization and coronary angiogram are performed via the right femoral artery using standard Pradeep catheters. Patient tolerated the procedure well without any immediate complications. Her blood pressure was elevated at the beginning of the procedure due to which we gave her intravenous Vasotec. A femoral angiogram was performed and Angio-Seal was deployed. Total sedation time was over 20 minutes. FINDINGS: 1. Hemodynamics: Left ventricular end-diastolic pressure is 10 to 12 mm. There is no significant gradient across the aortic valve. 2. Left ventriculogram: Left ventriculogram is not performed. 3. Angiographic data: a. Left main coronary artery: Left main coronary artery appears calcified, but is free of stenosis, divides into left anterior descending coronary artery and circumflex coronary artery. b. Circumflex coronary artery is a co-dominant system and is free of stenosis. c. LAD shows a 40% to 50% stenosis in its proximal part, heavily calcified. d. Right coronary artery is a co-dominant system, appears calcified and shows a 40% to 50% stenosis in its midportion. CONCLUSIONS: Two-vessel coronary artery disease as described above, heavily calcified vessels with a 50% stenosis involving the left anterior descending artery and right coronary artery. We advised the patient to continue with medical therapy. Her blood pressure is poorly controlled. I am adding Norvasc 10 mg daily to her medical regimen. Patient could not tolerate nitrates in the past. Will revisit this issue. I will see her back in the office in a week.
[2017-02-18 10:46] VITALS: TEMP 98
[2017-02-18 13:25] VITALS: BP 111/56; PULSE 59
--- NOTE | 2017-02-23 21:08 | CDI ---
Your cardiac cath report states sedation was used. What type of sedation was it? Examples include moderate conscious sedation and general anesthesia. Please provide your answer as an addendum to the operative report. This information is needed for proper coding and billing. If you dont understand what is needed from you, please contact my coding compliance auditor, Tejal Tolliver at [phone]. Thank you. VENESSA Kwan
--- NOTE | 2017-04-03 14:11 | CDI ---
Your cardiac cath report states sedation was used. What type of sedation was it ? Examples include moderate conscious sedation and general anesthesia. Please provide your answer as an addendum to the operative report. This information is needed for proper coding and billing. If you don't understand what is needed from you, please contact my pricing manager, Tejal Tolliver at [phone]. Thank you. TAZ HURST
--- NOTE | 2017-04-08 11:58 | OP ---
ADDENDUM: DATE OF SERVICE: 02/18/2017 SURGEON: LAURI HERNANDEZ DO BLIND HANGER: PREOPERATIVE DIAGNOSIS: POSTOPERATIVE DIAGNOSIS: OPERATION: ANESTHESIA: ESTIMATED BLOOD LOSS: SPECIMENS REMOVED: COMPLICATIONS: OPERATIVE FINDINGS: DESCRIPTION OF PROCEDURE: General anesthesia was utilized instead of IV conscious sedation.
--- NOTE | 2017-05-28 15:23 | PCN ---
ADDENDUM: I used moderate conscious sedation for this patient. Total sedation time was 20 minutes. MTDD
== END ==
LOC: CATHCVL 07:28
PROVIDERS: ATTEND Internal Medicine Cardiovascular Disease
DX: I25.110 Atherosclerotic heart disease of native coronary artery with unstable angina pectoris (principal); R94.39 Abnormal result of other cardiovascular function study; I10 Essential (primary) hypertension; E78.2 Mixed hyperlipidemia; I35.1 Nonrheumatic aortic (valve) insufficiency; E11.9 Type 2 diabetes mellitus without complications; Z79.84 Long term (current) use of oral hypoglycemic drugs; Z79.82 Long term (current) use of aspirin; Z79.891 Long term (current) use of opiate analgesic; Z79.899 Other long term (current) drug therapy
CPT/HCPCS: 93458; C1760; C1894; C1769; J2001; J2250; J1200; Q9967

== ENCOUNTER → 2017-02-27 | Outpatient (CLI) | payer MEDICARE, BC ==
--- NOTE | 2017-02-27 15:54 | US ---
EXAMINATION TYPE: US venous doppler duplex LE BI DATE OF EXAM: 02/27/2017 3:40 PM COMPARISON: NONE CLINICAL HISTORY: I82.409 DVT. Bilat leg swelling SIDE PERFORMED: Bilateral VESSELS IMAGED: External Iliac Vein (EIV) Common Femoral Vein Deep Femoral Vein Greater Saphenous Vein * Femoral Vein Popliteal Vein Small Saphenous Vein * Proximal Calf Veins (* superficial vessels) Right Leg: Appears negative for DVT Left Leg: Appears negative for DVT tech impression relayed to office @ 15:45 IMPRESSION: 1. No diagnostic evidence of DVT as visualized.
== END | disposition home or self-care (01) ==
LOC: RADUSWWP 15:06
PROVIDERS: ATTEND Podiatrist Foot & Ankle Surgery
DX: I82.409 Acute embolism and thrombosis of unspecified deep veins of unspecified lower extremity (principal)
CPT/HCPCS: 93970

== ENCOUNTER → 2017-05-01 | Outpatient (CLI) | payer MEDICARE, BC ==
--- NOTE | 2017-05-01 11:51 | US ---
EXAMINATION TYPE: US venous doppler duplex LE DATE OF EXAM: 05/01/2017 11:05 AM COMPARISON: NONE CLINICAL HISTORY: EDEMA R22.43, I82.409 DEEP VEIN THROMBOSIS. SIDE PERFORMED: Bilateral TECHNIQUE: The lower extremity deep venous system is examined utilizing real time linear array sonog molly with graded compression, doppler sonography and color-flow sonography. VESSELS IMAGED: External Iliac Vein (EIV) Common Femoral Vein Deep Femoral Vein Greater Saphenous Vein * Femoral Vein Popliteal Vein Small Saphenous Vein * Proximal Calf Veins (* superficial vessels) Right Leg: Negative for DVT Left Leg: Negative for DVT No popliteal fossa lesion was seen. IMPRESSION: THIS EXAMINATION IS NEGATIVE FOR DVT WITHIN BOTH LEGS.
== END | disposition home or self-care (01) ==
LOC: RADUSWWP 10:30
PROVIDERS: ATTEND Podiatrist Foot & Ankle Surgery
DX: I82.409 Acute embolism and thrombosis of unspecified deep veins of unspecified lower extremity (principal); R60.0 Localized edema
CPT/HCPCS: 93970